=== PATIENT | male | born 1955 | race Caucasian/White ===

== ENCOUNTER 2018-07-11 18:14 | Inpatient (IN) | payer MEDICAID ==
[2018-07-11] MEDS ORDERED: ASPIRIN PO ONE (19:11)
[2018-07-11 19:37] LABS: Basophils % (Auto) 0.4 % (0.0-1.8); Eosinophils # (Auto) 0.4 K/mm3 (0.0-0.4); Eosinophils % (Auto) 5.1 % (0.0-4.3); Lymphocytes # (Auto) 2.7 K/mm3 (1.2-5.4); Mean Corpuscular HGB Conc 36 % (32-34); Mean Corpuscular Hemoglobin 32 pg (28-32); Mean Corpuscular Volume 88 fl (84-94); Monocytes # (Auto) 0.6 K/mm3 (0.0-0.8); Monocytes % (Auto) 7.6 % (0.0-7.3); Platelet Count 237 K/mm3 (140-440); Red Blood Count 4.69 M/mm3 (3.65-5.03); Red Cell Distribution Width 13.5 % (13.2-15.2)
[2018-07-11 19:38] LABS: Hematocrit 41.4 % (35.5-45.6); Hemoglobin 14.9 gm/dl (11.8-15.2)
[2018-07-11 19:53] LABS: BUN/Creatinine Ratio 14; Blood Urea Nitrogen 11 mg/dL (9-20); Calcium 8.9 mg/dL (8.4-10.2); Hemolysis Index 13
--- NOTE | 2018-07-11 22:28 | Emergency Department Report ---
ED Chest Pain HPI - General Chief Complaint: Chest Pain Stated Complaint: CHEST PAIN/LEFT ARM PAIN Time Seen by Provider: 07/11/18 22:27 Source: family Mode of arrival: Ambulatory Limitations: No Limitations - History of Present Illness MD Complaint: chest pain -: Sudden Onset: during rest Pain Location: left chest Pain Radiation: LUE Severity: severe Severity scale (0 -10): 8 Quality: aching, heaviness, pressure Consistency: constant Improves With: other (Aspirin) Worsens With: nothing re: denies: nausea, vomting, diaphoresis Other Symptoms: denies: fever, syncope Treatments Prior to Arrival: none Aspirin use within the Past 7 Days: (0) No - Related Data On Oral Contraceptives: No Allergies Allergy/AdvReac Type Severity Reaction Status Date / Time No Known Allergies Allergy Unverified 07/11/18 19:11 Heart Score - HEART Score History: Highly suspicious EKG: Non-specific Age: 45-65 Risk factors: 1-2 risk factors Troponin: 1-3x normal limit HEART Score: 6 - Critical Actions Critical Actions: 4-6 pts:12-16.6% risk of adverse cardiac event. Should be admitted ED Review of Systems ROS: Stated complaint: CHEST PAIN/LEFT ARM PAIN Other details as noted in HPI Comment: All other systems reviewed and negative Constitutional: denies: chills, fever Eyes: denies: eye pain ENT: denies: ear pain Respiratory: denies: cough, shortness of breath Cardiovascular: chest pain. denies: palpitations Endocrine: no symptoms reported Gastrointestinal: denies: abdominal pain, nausea, vomiting, diarrhea Genitourinary: denies: urgency, dysuria Musculoskeletal: denies: back pain Skin: denies: rash, lesions Neurological: denies: headache, weakness, numbness Psychiatric: denies: anxiety, depression Hematological/Lymphatic: denies: easy bleeding, easy bruising ED Past Medical Hx - Past Medical History Additional medical history: elevated cholesterol - Surgical History Additional Surgical History: right hand - Social History Smoking Status: Never Smoker Substance Use Type: None ED Physical Exam - General Limitations: No Limitations General appearance: alert, in no apparent distress - Head Head exam: Present: atraumatic, normocephalic, normal inspection - Eye Eye exam: Present: normal appearance, PERRL, EOMI Pupils: Present: normal accommodation - ENT ENT exam: Present: normal exam, normal orophraynx, mucous membranes moist - Neck Neck exam: Present: normal inspection, full ROM. Absent: tenderness - Respiratory Respiratory exam: Present: normal lung sounds bilaterally. Absent: respiratory distress, wheezes, rales, rhonchi, stridor - Cardiovascular Cardiovascular Exam: Present: regular rate, normal rhythm, normal heart sounds - GI/Abdominal GI/Abdominal exam: Present: soft, normal bowel sounds. Absent: distended, tenderness, guarding, rebound - Extremities Exam Extremities exam: Present: normal inspection, full ROM, normal capillary refill. Absent: tenderness - Back Exam Back exam: Present: normal inspection, full ROM. Absent: tenderness - Neurological Exam Neurological exam: Present: alert, oriented X3, CN II-XII intact - Psychiatric Psychiatric exam: Present: normal affect, normal mood - Skin Skin exam: Present: warm, dry, intact, normal color. Absent: rash ED Course Vital Signs 07/11/18 07/11/18 07/11/18 19:08 21:50 22:01 Temperature 97.9 F Pulse Rate 66 144 H 53 L Respiratory 18 17 Rate Blood Pressure 153/103 164/89 O2 Sat by Pulse 100 98 Oximetry 07/11/18 07/11/18 22:15 22:31 Temperature Pulse Rate 58 L 66 Respiratory 13 18 Rate Blood Pressure 156/96 O2 Sat by Pulse 96 97 Oximetry - Reevaluation(s) Reevaluation #1: 07/11/18 22:57 I discussed patient care with the hospitalist casino floor person Dr Parks. He will admit patient for further evaluation and management. RJ score - Rj Score Age > 65: (0) No Aspirin use within the Past 7 Days: (0) No 3 or more CAD Risk Factors: (0) No 2 or more Angina events in past 24 hrs: (0) No Known CAD with more than 50% Stenosis: (0) No Elevated Cardiac Markers: (0) No ST Deviation Greater than 0.5mm: (0) No RJ Score: 0 ED Medical Decision Making - Lab Data Result diagrams: 07/11/18 19:27 07/11/18 19:27 - EKG Data -: EKG Interpreted by Me - EKG Data When compared to previous EKG there are: previous EKG unavailable Critical care attestation.: If time is entered above; I have spent that time in minutes in the direct care of this critically ill patient, excluding procedure time. ED Disposition Clinical Impression: Chest pain Qualifiers: Chest pain type: unspecified Qualified Code(s): R07.9 - Chest pain, unspecified Hypertension Qualifiers: Hypertension type: unspecified Qualified Code(s): I10 - Essential (primary) hypertension Disposition: OP ADMIT IP TO THIS HOSP Is pt being admited?: Yes Does the pt Need Aspirin: Yes Condition: Stable Instructions: Chest Pain (ED), Hypertension (ED) Referrals: PRIMARY CARE, [Primary Care Provider] - 3-5 Days Time of Disposition: 22:58
[2018-07-11] MEDS ORDERED: NITRO-BID 2% TP ONE (22:47)
--- NOTE | 2018-07-11 23:10 | XRay Report ---
FINAL REPORT PROCEDURE: XR CHEST 1V AP TECHNIQUE: Chest radiograph anteroposterior view. CPT 16734 HISTORY: chest pain COMPARISON: No prior studies are available for comparison. FINDINGS: Heart: Normal. Mediastinum/Vessels: Normal. Lungs/Pleural space: Normal. Bony thorax: No acute osseous abnormality. Life support devices: None. IMPRESSION: No acute cardiopulmonary abnormality.
[2018-07-11 23:34] LABS: INR 0.96 (0.87-1.13); Partial Thromboplastin Time 28.6 Sec. (24.2-36.6)
[2018-07-12] MEDS ORDERED: ZOFRAN IV PRN (00:59)
[2018-07-12] MEDS ORDERED: NITROSTAT SL PRN (01:00)
[2018-07-12] MEDS ORDERED: TYLENOL PO PRN (01:01)
[2018-07-12] MEDS ORDERED: MORPHINE IV PRN (01:03)
--- NOTE | 2018-07-12 05:19 | History and Physical Report ---
CHIEF COMPLAINT: Chest pain. HISTORY OF PRESENT ILLNESS: The patient is a 62-year-old male who said that he started having heaviness and pressure in the precordial area and pain radiated to the left upper extremity. The patient denied history of any shortness of breath, denied history of nausea or vomiting, and also denied a history of diaphoresis. The pain improved with treatment with aspirin and pain medications. There was no history of fever or chills and the patient presented to the Emergency Room for evaluation. PAST MEDICAL HISTORY: Pertinent for high cholesterol. PAST SURGICAL HISTORY: Pertinent for right hand surgery. FAMILY HISTORY: Noncontributory. SOCIAL HISTORY: The patient does not smoke, does not drink alcohol, and does not use illicit drug. MEDICATIONS: The patient's home medications are not known. ALLERGIES: There are no known drug allergies. REVIEW OF SYSTEMS: CONSTITUTIONAL: There is no fever, no chills, no diaphoresis. HEENT: There is no headache or sore throat. CARDIOVASCULAR: Chest pain is present. No orthopnea. RESPIRATORY: There is no shortness of breath or cough. GASTROINTESTINAL: There is no nausea, no vomiting, no abdominal pain, diarrhea, or constipation. NEUROLOGICAL: There is no numbness, no dizziness, no altered mental status. MUSCULOSKELETAL: There is no joint pain or swelling. DERMATOLOGICAL: There is no skin rash or itching. GENITOURINARY: There is no dysuria, hematuria, or flank pain. Rest of system review is normal. PHYSICAL EXAMINATION: GENERAL: At the time of exam, the patient was found to be alert, oriented x 3, and not in acute distress. VITAL SIGNS: From the time of initial presentation shows temperature of 97.9 degrees Fahrenheit, pulse of 66, respirations 18, blood pressure 153/103, O2 sat of 100% on room air. HEENT: Showed pupils to be equal, round, reactive to light and accommodation. Extraocular muscles are intact. NECK: Supple with no JVD or carotid bruit. CARDIOVASCULAR: Showed normal first and second heart sounds with no gallops or murmurs. RESPIRATORY: Showed good air entry on both sides of the lungs with no abnormal breath sounds. GASTROINTESTINAL: Showed abdomen to be full, soft, nontender with no organomegaly or rigidity. NEUROLOGIC: Shows no focal deficit. MUSCULOSKELETAL: Showed no joint swelling or tenderness. DERMATOLOGICAL: Showed no skin rash. GENITOURINARY: Showing no costovertebral angle tenderness. PERTINENT LABORATORY AND IMAGING STUDIES: The patient had CBC done with normal white count, normal hemoglobin, and normal hematocrit with CBC differential showing elevated monocyte count of 7.6% and elevated eosinophil count of 5.1%. Coagulation studies were unremarkable. The patient's chemistry came back unremarkable. Cardiac enzymes were unremarkable. Brain natriuretic peptide level was normal. The patient had chest x-ray done that shows no acute cardiopulmonary lesion. DIAGNOSES: 1. Chest pain R/O Myocardial Infarction. 2. Hypertension. PLAN: 1. The patient will be admitted to telemetry. 2. The patient will have cardiac enzymes involving troponin, total CK, and CK-MB checked q. 6 hours x 2 more levels. 3. The patient will remain n.p.o. for Lexiscan stress test in the morning. 4. The patient will be on nitro paste 1 inch to anterior chest wall q.i.d. and also nitroglycerin sublingual 0.4 mg every 5 minutes as needed for chest pain. 5. The patient will be on IV morphine 2 mg every 5 minutes as needed for pain and IV Zofran 4 mg every 8 hours as needed for nausea and vomiting. 6. The patient will be on Tylenol 650 mg by mouth every 4 hours for fever and headache and will be on aspirin 325 mg by mouth daily. 7. DVT prophylaxis will be through heparin 5000 units subcutaneously q. 12 hours. 8. The patient will be on oxygen by nasal cannula at 2 liter per minute and will remain n.p.o. for Lexiscan stress test this morning. JOB# [id number] OCN/NTS SOLED
[2018-07-12] MEDS: NITRO-BID 2% TP SCH ×3 (06:12→11:11)
[2018-07-12 06:36] LABS: Creatine Kinase MB 1.8 ng/mL (0.0-4.0)
[2018-07-12] MEDS ORDERED: HEPARIN SUB-Q SCH (10:00)
[2018-07-12] MEDS ORDERED: ASPIRIN PO SCH (10:00)
[2018-07-12] MEDS ORDERED: NORVASC PO SCH (11:00)
[2018-07-12 12:59] LABS: Creatine Kinase MB 1.8 ng/mL (0.0-4.0)
--- NOTE | 2018-07-12 13:05 | Treadmill Report ---
THALLIUM REPORT REASON FOR STUDY: Chest pain. IMAGING PROTOCOL: The patient received 10.94 mCi of Tc-99m Tetrofosmin for rest imaging, 30.58 mCi of Tc-99m Tetrofosmin for stress imaging. Imaging for all procedures was completed 30-90 minutes following the initial injection of Technetium 99m Tetrofosmin. SPECT imaging in the 180 degree arc was performed in the right anterior oblique projection. Computerized reconstruction of the images was performed for analysis. NUCLEAR IMAGING RESULTS: Normal left ventricular cavity size with no change from stress to rest. Distribution of radionuclide within the left ventricle revealed a small to medium size area of photo-induction involving the apex. The degree of photo-induction is mild to moderate. Rest imaging does not show any significant improvement in this defect. Gated SPECT imaging revealed normal global LV systolic function with no significant wall motion abnormalities. The calculated left ventricular ejection fraction is 56%. IMPRESSION: Small to medium size fixed apical defect. Normal global left ventricular systolic function with no significant wall motion abnormalities. Ejection fraction 56%. 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 However, in the absence of wall motion abnormalities, the defect noted in this patient may also be artifactual. No evidence of significant stress-induced ischemia. [facility]# [id number] GLADYS/SARAH LERNER
[2018-07-12 13:17] VITALS: BP 146/97
--- NOTE | 2018-07-12 14:47 | Discharge Summary ---
Providers - Providers Date of Admission: 07/12/18 00:54 Date of discharge: 07/12/18 Attending physician: CORONA CORREA Primary care physician: [employer] Hospitalization Condition: Stable Hospital course: Discharge Diagnoses: Chest pains, atypical, likely costochondrititis, stress test normal Accelerated hypertension, new onset Dysplipidemia Disposition: DC-01 TO HOME OR SELFCARE Time spent for discharge: 32 minutes Core Measure Documentation - Palliative Care Palliative Care/ Comfort Measures: Not Applicable - Core Measures Any of the following diagnoses?: none - VTE Discharge Requirements Deep Vein Thrombosis/Pulmonary Embolism Present on Admission: No Has pt received <5 days of overlap therapy or INR<2.0: No Anticoagulant overlap therapy prescribed at discharge: No Contraindication No Overlap Therapy order at DC: Not Indicated Exam - Physical Exam Narrative exam: GEN: WDWN, NAD, Awake, Alert, Orientated x 3 HEENT: NCAT, EOMI, PERRL, OP Clear NECK: supple, no adenopathy, no thyromegaly, no JVD CVS/HEART: RRR, normal S1S2, pulses present bilaterally CHEST/LUNGS: CTA B, Symmetrical chest expansion, good air entry bilaterally GI/Abdomen: soft, NTND, good bowel sounds, no guarding or rebound /Bladder: no suprapubic tenderness, no CVA or paraspinal tenderness EXT/Skin: no c/c/e, no obvious rash MSK: FROM x 4 Neuro: CN 2-12 grossly intact, no new focal deficits Psych: calm - Constitutional Vitals: Temp Pulse Resp BP Pulse Ox 98.0 F 66 16 146/97 96 07/12/18 07:46 07/12/18 09:22 07/12/18 07:46 07/12/18 07:46 07/12/18 07:46 Plan Activity: other (no strenous activity unless cleared by PCP) Diet: low salt Special Instructions: record daily BP diary Follow up with: PRIMARY CARE, [Primary Care Provider] - 3-5 Days Prescriptions: amLODIPine [Norvasc] 5 mg PO QDAY #30 tablet
== END 2018-07-12 16:20 | disposition home or self-care (01) | DRG 206 ==
LOC: EDBD → ED 18:14 → 4A 07-12 00:54
PROVIDERS: ADMIT Internal Medicine; ATTEND Internal Medicine
DX: M94.0 Chondrocostal junction syndrome [Tietze] (principal); I10 Essential (primary) hypertension; E78.5 Hyperlipidemia, unspecified
CPT/HCPCS: 36415; 71045; 78452; 80048; 82550; 82553; 83880; 84484; 85025; 85610; 85730; 93005; 93010; 93017; A9502; J1644; J2270